=== PATIENT | male | born 1985 | race Two or more races ===

== ENCOUNTER 2019-03-11 16:50 | Emergency (ER) | payer OTHER ==
[~2019-03-11] VITALS: Ht 175.3 cm; Wt 90.7 kg
[2019-03-11 17:00] VITALS: BP 118/74
[2019-03-11] MEDS ORDERED: TETANUS-DIPTH-ACEL PERTUSSIS 0.5ML SYRG IM ONE (18:00)
== END 2019-03-11 18:23 | disposition home or self-care (01) ==
LOC: ER 16:58
DX: S61.230A Puncture wound without foreign body of right index finger without damage to nail, initial encounter (principal); W46.1XXA Contact with contaminated hypodermic needle, initial encounter; Y93.89 Activity, other specified; Y92.89 Other specified places as the place of occurrence of the external cause; Y99.8 Other external cause status
CPT/HCPCS: 36415; 86703; 86706; 86803; 87340; 90471; 90715